=== PATIENT | female | born 2000 | race Caucasian/White ===

== ENCOUNTER 2018-11-12 23:41 | Emergency (ER) | payer BC, OTHER ==
[2018-11-12] MEDS ORDERED: SODIUM CHLORIDE 0.9% 1,000 ML IV STA (23:46)
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
[2018-11-13 00:09] VITALS: RESP 18
[2018-11-13 00:17] LABS: Basophils # (A) 0.1 k/uL (0-0.2); Basophils % (A) 1 %; Eosinophils # (A) 0.2 k/uL (0-0.7); Eosinophils % (A) 2 %; HCT 42.8 % (34.0-46.0); HGB 14.3 gm/dL (11.4-16.0); Lymphocytes # (A) 3.4 k/uL (1.0-4.8); Lymphocytes % (A) 32 %; MCH 30.6 pg (25.0-35.0); MCHC 33.4 g/dL (31.0-37.0); MCV 91.5 fL (80.0-100.0); Mean Platelet Volume 7.1; Monocytes # (A) 0.4 k/uL (0-1.0); Monocytes % (A) 4 %; Neutrophils # (A) 6.1 k/uL (1.3-7.7); Neutrophils % (A) 59 %; Platelet Count 262 k/uL (150-450); RBC 4.68 m/uL (3.80-5.40); RDW 12.8 % (11.5-15.5); WBC 10.4 k/uL (4.0-11.0)
--- NOTE | 2018-11-13 00:23 | XR ---
EXAM: XR Chest, 1 View CLINICAL HISTORY: ITS.REASON XR Reason: trauma TECHNIQUE: Frontal view of the chest. COMPARISON: None. FINDINGS: Lungs: Hypoinflated lungs. Pleural space: Unremarkable. No pneumothorax. Heart: Unremarkable. No cardiomegaly. Mediastinum: Unremarkable. Bones/joints: Unremarkable. IMPRESSION: Hypoinflated lungs. Otherwise, no acute abnormality.
--- NOTE | 2018-11-13 00:24 | XR ---
EXAM: XR Pelvis, 1 or 2 Views CLINICAL HISTORY: ITS.REASON XR Reason: Trauma TECHNIQUE: Frontal view of the pelvis. COMPARISON: None. FINDINGS: Bones/joints: Unremarkable. No acute fracture. No dislocation. Soft tissues: Unremarkable. IMPRESSION: No acute osseous abnormality.
[2018-11-13 00:28] LABS: ALT 31 U/L (9-52); AST 27 U/L (14-36); African American GFR (CKD) >90 (>60 ml/min/1.73 sqM); Albumin 4.8 g/dL (3.5-5.0); Alkaline Phosphatase 62 U/L (38-126); Anion Gap 15 mmol/L; Blood Urea Nitrogen 6 mg/dL (7-17); Calcium 9.5 mg/dL (8.4-10.2); Carbon Dioxide 16 mmol/L (22-30); Chloride 114 mmol/L (98-107); Glucose 99 mg/dL (74-99); Potassium 4.2 mmol/L (3.5-5.1); Sodium 145 mmol/L (137-145); Total Bilirubin 0.9 mg/dL (0.2-1.3); Total Protein 7.7 g/dL (6.3-8.2)
[2018-11-13 00:37] LABS: Appearance,Urine Clear (Clear); Bilirubin,Urine Negative (Negative); Blood,Urine Negative (Negative); Color,Urine Colorless; Glucose,Urine (UA) Negative (Negative); Ketones,Urine Negative (Negative); Leukocyte Esterase,Urine Negative (Negative); Nitrite,Urine Negative (Negative); PH, Urine 6.5 (5.0-8.0); Protein,Urine Negative (Negative); Specific Gravity,Urine 1.002 (1.001-1.035); Urobilinogen,Urine <2.0 mg/dL (<2.0)
[2018-11-13 00:48] LABS: INR 0.9 (<1.2); Partial Thromboplastin Time 27.8 sec (22.0-30.0); Prothrombin Time 10.1 sec (9.0-12.0)
[2018-11-13 00:50] LABS: Amphetamine Screen,Urine Not Detected (NotDetected); Benzodiazepines Screen,Urine Not Detected (NotDetected); Cocaine Screen,Urine Not Detected (NotDetected); Methadone Screen, Urine Not Detected (NotDetected); Opiate Screen,Urine Not Detected (NotDetected); Phencyclidine Screen,Urine Not Detected (NotDetected); Tricyclic Antidepressant,Urine Not Detected (NotDetected); Urn Cannabinoid Scrn Not Detected (NotDetected)
[2018-11-13 00:51] LABS: Barbiturate Screen,Urine Not Detected (NotDetected); Oxycodone Screen, Urine Not Detected (NotDetected)
[2018-11-13 00:52] LABS: Alcohol 173 mg/dL
--- NOTE | 2018-11-13 00:54 | CT ---
EXAM: CT Head Without Intravenous Contrast CLINICAL HISTORY: ITS.REASON CT Reason: trauma TECHNIQUE: Axial computed tomography images of the head/brain without intravenous contrast. CTDI is 45.2 mGy and DLP is 1037 mGy-cm. This CT exam was performed using one or more of the following dose reduction techniques: automated exposure control, adjustment of the mA and/or kV according to patient size, and/or use of iterative reconstruction technique. COMPARISON: None. FINDINGS: Brain: Unremarkable. No hemorrhage. No significant white matter disease. No edema. Ventricles: Unremarkable. No ventriculomegaly. 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 This results in narrowing of the left vidian canal. No acute fracture. Soft tissues: Unremarkable. Sinuses: Mild mucosal thickening is seen in the ethmoid sinuses. Mastoid air cells: Unremarkable as visualized. No mastoid effusion. IMPRESSION: No intracranial hemorrhage or other acute intracranial abnormality. EXAM: CT Cervical Spine Without Intravenous Contrast CLINICAL HISTORY: ITS.REASON CT Reason: trauma TECHNIQUE: Axial computed tomography images of the cervical spine without intravenous contrast. CTDI is 16.8 mGy and DLP is 475.7 mGy-cm. This CT exam was performed using one or more of the following dose reduction techniques: automated exposure control, adjustment of the mA and/or kV according to patient size, and/or use of iterative reconstruction technique. COMPARISON: None. FINDINGS: Vertebrae: Unremarkable. No acute fracture. Discs/spinal canal/neural foramina: No acute findings. No spinal canal stenosis. Soft tissues: Unremarkable. IMPRESSION: No fracture or traumatic malalignment of the cervical spine.
--- NOTE | 2018-11-13 01:00 | CT ---
EXAM: CT Chest With Intravenous Contrast CLINICAL HISTORY: ITS.REASON CT Reason: trauma TECHNIQUE: Axial computed tomography images of the chest with intravenous contrast. CTDI is 16.5 mGy and DLP is 1281 mGy-cm. This CT exam was performed using one or more of the following dose reduction techniques: automated exposure control, adjustment of the mA and/or kV according to patient size, and/or use of iterative reconstruction technique. COMPARISON: None. FINDINGS: Lungs: Unremarkable. No mass. No consolidation. Pleural space: Unremarkable. No pneumothorax. No significant effusion. Heart: Unremarkable. No cardiomegaly. No significant pericardial effusion. Bones/joints: Unremarkable. No acute fracture. No dislocation. Soft tissues: Unremarkable. Vasculature: Unremarkable. No thoracic aortic aneurysm. Lymph nodes: Unremarkable. No enlarged lymph nodes. IMPRESSION: No acute traumatic abnormality in the chest. EXAM: CT Abdomen and Pelvis With Intravenous Contrast CLINICAL HISTORY: ITS.REASON CT Reason: trauma TECHNIQUE: Axial computed tomography images of the abdomen and pelvis with intravenous contrast. CTDI is 16.5 mGy and DLP is 1281 mGy-cm. This CT exam was performed using one or more of the following dose reduction techniques: automated exposure control, adjustment of the mA and/or kV according to patient size, and/or use of iterative reconstruction technique. COMPARISON: None. FINDINGS: Lung bases: Unremarkable. No mass. No consolidation. ABDOMEN: Liver: Unremarkable. No mass. Gallbladder and bile ducts: Unremarkable. No calcified stones. No ductal dilation. Pancreas: Unremarkable. No mass. No ductal dilation. Spleen: Unremarkable. No splenomegaly. Adrenals: Unremarkable. No mass. Kidneys and ureters: Unremarkable. No solid mass. No hydronephrosis. Stomach and bowel: Unremarkable. No obstruction. No mucosal thickening. PELVIS: Appendix: No findings to suggest acute appendicitis. Bladder: Unremarkable. No mass. Reproductive: Unremarkable as visualized. ABDOMEN and PELVIS: Intraperitoneal space: Unremarkable. No free air. No significant fluid collection. Bones/joints: No acute fracture. No dislocation. Soft tissues: Unremarkable. Vasculature: Unremarkable. No abdominal aortic aneurysm. Lymph nodes: Unremarkable. No enlarged lymph nodes. IMPRESSION: No acute traumatic abnormality in the abdomen or pelvis.
[2018-11-13 01:57] VITALS: BP 96/58; PULSE 72; TEMP 97.9
== END 2018-11-13 01:57 | disposition home or self-care (01) ==
LOC: EC 23:41
DX: S00.81XA Abrasion of other part of head, initial encounter (principal); F10.129 Alcohol abuse with intoxication, unspecified; V57.5XXA Driver of pick-up truck or van injured in collision with fixed or stationary object in traffic accident, initial encounter; Y92.89 Other specified places as the place of occurrence of the external cause; Y90.6 Blood alcohol level of 120-199 mg/100 ml
CPT/HCPCS: 99285; 96360; 36415; 93005; 86900; 86901; 80053; 84484; 85025; 85610; 85730; 86850; 81003; 81025; 80306; 80320; 72170; 71045; 72125; 70450; 71260; 74177; Q9967

== ENCOUNTER 2019-12-19 11:17 | Emergency (ER) | payer OTHER ==
--- NOTE | 2019-12-19 11:41 | ED ---
Nausea/Vomiting/Diarrhea HPI - General Chief complaint: Nausea/Vomiting/Diarrhea Stated complaint: weak/feel like passing out/nausea/vomiting Source: patient Mode of arrival: wheelchair - History of Present Illness Initial comments: Patient is a 19-year-old female presenting to emergency Department with chief complaint nausea, vomiting, diarrhea and lightheadedness. Patient states the diarrhea started about 2 days ago. States one day ago she developed nausea and vomiting. Patient reports also some epigastric abdominal pain after vomiting episodes. She denies any hemoptysis or hematemesis. States she also has anxiety which is also causing her to be more nauseous. Patient states she also has some left flank pain. She does report feeling weak and lightheaded. She denies any headaches or visual changes.. Reports she is currently on her menstrual period. She denies any vaginal or urinary symptoms. Denies hematuria, hematochezia or melena. Denies any night sweats fevers or chills. - Related Data Allergies Allergy/AdvReac Type Severity Reaction Status Date / Time No Known Allergies Allergy Verified 12/19/19 11:21 Review of Systems ROS Statement: Those systems with pertinent positive or pertinent negative responses have been documented in the HPI. ROS Other: All systems not noted in ROS Statement are negative. Past Medical History Past Medical History: No Reported History History of Any Multi-Drug Resistant Organisms: None Reported Past Surgical History: No Surgical Hx Reported Past Psychological History: Anxiety Smoking Status: Never smoker Past Alcohol Use History: Occasional Past Drug Use History: None Reported General Exam Limitations: no limitations General appearance: alert, in no apparent distress, anxious Head exam: Present: atraumatic, normocephalic, normal inspection Eye exam: Present: normal appearance, PERRL, EOMI Pupils: Present: normal accommodation ENT exam: Present: normal exam, normal oropharynx, mucous membranes moist, TM's normal bilaterally, normal external ear exam Neck exam: Present: normal inspection, full ROM. Absent: tenderness Respiratory exam: Present: normal lung sounds bilaterally. Absent: respiratory distress, wheezes, rales Cardiovascular Exam: Present: regular rate, normal rhythm, normal heart sounds GI/Abdominal exam: Present: soft. Absent: distended, tenderness, guarding, rebound, rigid Extremities exam: Present: normal inspection, full ROM, normal capillary refill. Absent: tenderness, pedal edema, joint swelling, calf tenderness Back exam: Present: normal inspection, full ROM, CVA tenderness (L). Absent: tenderness, CVA tenderness (R) Neurological exam: Present: alert, oriented X3, normal gait Psychiatric exam: Present: normal affect, anxious Skin exam: Present: warm, dry, intact, normal color Course Vital Signs 12/19/19 11:18 Temperature 98.4 F Pulse Rate 76 Respiratory 18 Rate Blood Pressure 137/76 O2 Sat by Pulse 100 Oximetry Medical Decision Making - Medical Decision Making Patient is a 19-year-old female presenting to emergency Department with chief complaint nausea vomiting diarrhea and lightheadedness. On initial evaluation, patient has anxiety and is crying while looking through her phone. She has nausea vomiting diarrhea 1-2 days. I suspect the lightheadedness is secondary to fluid loss from the vomiting and diarrhea. She does have mild left CVA tenderness. UA is positive for blood although she is currently on her menstrual period. No signs of urinary tract infection at this time. CBC reveals leukocytosis which I suspect is secondary to the vomiting. Patient was given IV fluids, Protonix and antiemetics. She was also given 0.5 mg of Ativan to help with anxiety. A reevaluation patient reports improvement in symptoms. I suspect the patient has gastroenteritis. Her symptoms could also be related to her menstrual periods which are quite irregular. She was advised to follow with a primary care physician. Strict return parameters were thoroughly discussed the patient is a worsening agreeable. She will be discharged with Zofran. Case discussed with physician. - Lab Data Result diagrams: 12/19/19 12:12 12/19/19 12:12 Lab Results 12/19/19 12/19/19 12/19/19 Range/Units 12:12 12:12 12:12 WBC 11.0 H (3.8-10.6) k/uL RBC 4.83 (3.80-5.40) m/uL Hgb 14.5 (11.4-16.0) gm/dL Hct 44.2 (34.0-46.0) % MCV 91.4 (80.0-100.0) fL MCH 30.1 (25.0-35.0) pg MCHC 32.9 (31.0-37.0) g/dL RDW 13.5 (11.5-15.5) % Plt Count 285 (150-450) k/uL Neutrophils % 77 % Lymphocytes % 16 % Monocytes % 5 % Eosinophils % 2 % Basophils % 0 % Neutrophils # 8.4 H (1.3-7.7) k/uL Lymphocytes # 1.7 (1.0-4.8) k/uL Monocytes # 0.5 (0-1.0) k/uL Eosinophils # 0.2 (0-0.7) k/uL Basophils # 0.0 (0-0.2) k/uL Sodium (137-145) mmol/L Potassium (3.5-5.1) mmol/L Chloride (98-107) mmol/L Carbon Dioxide (22-30) mmol/L Anion Gap mmol/L BUN (7-17) mg/dL Creatinine (0.52-1.04) mg/dL Est GFR (CKD-EPI)AfAm (>60 ml/min/1.73 sqM) Est GFR (CKD-EPI)NonAf (>60 ml/min/1.73 sqM) Glucose (74-99) mg/dL Calcium (8.4-10.2) mg/dL Total Bilirubin (0.2-1.3) mg/dL AST (14-36) U/L ALT (4-34) U/L Alkaline Phosphatase (38-126) U/L Total Protein (6.3-8.2) g/dL Albumin (3.5-5.0) g/dL Lipase (23-300) U/L Urine Color Yellow Urine Appearance Cloudy H (Clear) Urine pH 6.0 (5.0-8.0) Ur Specific [place] 1.025 (1.001-1.035) Urine Protein 1+ H (Negative) Urine Glucose (UA) Negative (Negative) Urine Ketones 1+ H (Negative) Urine Blood Moderate H (Negative) Urine Nitrite Negative (Negative) Urine Bilirubin Negative (Negative) Urine Urobilinogen <2.0 (<2.0) mg/dL Ur Leukocyte Esterase Negative (Negative) Urine RBC 13 H (0-5) /hpf Urine WBC 16 H (0-5) /hpf Ur Squamous Epith Cells 5 H (0-4) /hpf Urine Mucus Many H (None) /hpf Urine HCG, Qual Not Detected (Not Detectd) 12/19/19 Range/Units 12:12 WBC (3.8-10.6) k/uL RBC (3.80-5.40) m/uL Hgb (11.4-16.0) gm/dL Hct (34.0-46.0) % MCV (80.0-100.0) fL MCH (25.0-35.0) pg MCHC (31.0-37.0) g/dL RDW (11.5-15.5) % Plt Count (150-450) k/uL Neutrophils % % Lymphocytes % % Monocytes % % Eosinophils % % Basophils % % Neutrophils # (1.3-7.7) k/uL Lymphocytes # (1.0-4.8) k/uL Monocytes # (0-1.0) k/uL Eosinophils # (0-0.7) k/uL Basophils # (0-0.2) k/uL Sodium 142 (137-145) mmol/L Potassium 4.1 (3.5-5.1) mmol/L Chloride 104 (98-107) mmol/L Carbon Dioxide 26 (22-30) mmol/L Anion Gap 12 mmol/L BUN 9 (7-17) mg/dL Creatinine 0.78 (0.52-1.04) mg/dL Est GFR (CKD-EPI)AfAm >90 (>60 ml/min/1.73 sqM) Est GFR (CKD-EPI)NonAf >90 (>60 ml/min/1.73 sqM) Glucose 97 (74-99) mg/dL Calcium 10.0 (8.4-10.2) mg/dL Total Bilirubin 1.2 (0.2-1.3) mg/dL AST 24 (14-36) U/L ALT 50 H (4-34) U/L Alkaline Phosphatase 87 (38-126) U/L Total Protein 8.7 H (6.3-8.2) g/dL Albumin 5.4 H (3.5-5.0) g/dL Lipase 17 L (23-300) U/L Urine Color Urine Appearance (Clear) Urine pH (5.0-8.0) Ur Specific [place] (1.001-1.035) Urine Protein (Negative) Urine Glucose (UA) (Negative) Urine Ketones (Negative) Urine Blood (Negative) Urine Nitrite (Negative) Urine Bilirubin (Negative) Urine Urobilinogen (<2.0) mg/dL Ur Leukocyte Esterase (Negative) Urine RBC (0-5) /hpf Urine WBC (0-5) /hpf Ur Squamous Epith Cells (0-4) /hpf Urine Mucus (None) /hpf Urine HCG, Qual (Not Detectd) Disposition Clinical Impression: Nausea vomiting and diarrhea, Gastroenteritis Disposition: HOME SELF-CARE Condition: Stable Instructions (If sedation given, give patient instructions): Gastroenteritis (DC) Additional Instructions: Drink plenty of fluids. Take prescribed medication as directed. Return to emergency department if symptoms worsen. Follow with her primary care physician. Is patient prescribed a controlled substance at d/c from ED?: No Referrals: None,Stated [Primary Care Provider] - 1-2 days Time of Disposition: 13:30
[2019-12-19] MEDS ORDERED: SODIUM CHLORIDE 0.9% 1,000 ML IV STA (11:47)
[2019-12-19] MEDS ORDERED: PANTOPRAZOLE 40 MG/10 ML VIAL IVP STA (11:47)
[2019-12-19] MEDS ORDERED: ONDANSETRON 4 MG/2 ML VIAL IVP STA (11:47)
[2019-12-19] MEDS ORDERED: LORazepam 2 MG/ML INJ IV STA (11:48)
[2019-12-19 12:37] LABS: Basophils % (A) 0 %; Eosinophils # (A) 0.2 k/uL (0-0.7); Eosinophils % (A) 2 %; HCT 44.2 % (34.0-46.0); HGB 14.5 gm/dL (11.4-16.0); Lymphocytes # (A) 1.7 k/uL (1.0-4.8); Lymphocytes % (A) 16 %; MCH 30.1 pg (25.0-35.0); MCHC 32.9 g/dL (31.0-37.0); MCV 91.4 fL (80.0-100.0); Mean Platelet Volume 7.5; Monocytes # (A) 0.5 k/uL (0-1.0); Monocytes % (A) 5 %; Neutrophils # (A) 8.4 k/uL (1.3-7.7); Neutrophils % (A) 77 %; Platelet Count 285 k/uL (150-450); RBC 4.83 m/uL (3.80-5.40); RDW 13.5 % (11.5-15.5)
[2019-12-19 12:46] LABS: Appearance,Urine Cloudy (Clear); Bilirubin,Urine Negative (Negative); Blood,Urine Moderate (Negative); Color,Urine Yellow; Glucose,Urine (UA) Negative (Negative); Ketones,Urine 1+ (Negative); Leukocyte Esterase,Urine Negative (Negative); Mucus,Urine Many /hpf; Nitrite,Urine Negative (Negative); Protein,Urine 1+ (Negative); RBC,Urine 13 /hpf (0-5); Specific Gravity,Urine 1.025 (1.001-1.035); Squamous Epithelial Cell,Urine 5 /hpf (0-4); Urobilinogen,Urine <2.0 mg/dL (<2.0); WBC,Urine 16 /hpf (0-5)
[2019-12-19 12:47] LABS: ALT 50 U/L (4-34); AST 24 U/L (14-36); African American GFR (CKD) >90 (>60 ml/min/1.73 sqM); Albumin 5.4 g/dL (3.5-5.0); Alkaline Phosphatase 87 U/L (38-126); Anion Gap 12 mmol/L; Blood Urea Nitrogen 9 mg/dL (7-17); Carbon Dioxide 26 mmol/L (22-30); Chloride 104 mmol/L (98-107); Glucose 97 mg/dL (74-99); Lipase 17 U/L (23-300); Non-African American GFR(CKD) >90 (>60 ml/min/1.73 sqM); Potassium 4.1 mmol/L (3.5-5.1); Sodium 142 mmol/L (137-145); Total Bilirubin 1.2 mg/dL (0.2-1.3); Total Protein 8.7 g/dL (6.3-8.2)
[2019-12-19] MEDS ORDERED: METOCLOPRAMIDE 5 MG/ML 2 ML VIAL IVP STA (12:47)
[2019-12-19] MEDS ORDERED: diphenhydrAMINE 50 MG/ML 1 ML VIAL IVP STA (12:47)
[2019-12-19 14:11] VITALS: RESP 20
[2019-12-19 14:12] VITALS: BP 99/63; PULSE 53; TEMP 98
== END 2019-12-19 14:12 | disposition home or self-care (01) ==
LOC: EC 11:17
DX: K52.9 Noninfective gastroenteritis and colitis, unspecified (principal); R42 Dizziness and giddiness; F41.9 Anxiety disorder, unspecified; D72.829 Elevated white blood cell count, unspecified
CPT/HCPCS: 36415; 80053; 83690; 85025; 81001; 81025; 87086; 99284; 96374; 96375 ×4; 96361; J2060; J1200; J2765; J2405; C9113

== ENCOUNTER 2020-05-12 11:37 | Inpatient (IN) | payer MEDICAID, OTHER ==
[2020-05-12] MEDS ORDERED: chlordiazePOXIDE 25 MG CAP PO STA (12:11)
--- NOTE | 2020-05-12 12:15 | ED ---
Psych HPI - General Chief Complaint: Psychiatric Symptoms Stated Complaint: detoxing Time Seen by Provider: 05/12/20 11:46 Source: patient, RN notes reviewed, old records reviewed Mode of arrival: ambulatory - History of Present Illness Initial Comments: Is a 19-year-old female with a history of benzodiazepine and opiate abuse who presents for concern for suicidal thoughts. Patient states that she has no specific plan. She reports that she is withdrawing at this time and her last dose of Xanax as night. She reports that she is "12 bars" of xanax daily. She reports her last opiate use was 2 weeks ago. Patient reports was the first time she's been evaluated for mental health issues. She fortunately she has a personality disorder. She has history of self-inflicted cutting, she cut her left wrist yesterday. - Related Data Previous Rx's Medication Instructions Recorded Ondansetron Odt [Zofran Odt] 4 mg PO Q8HR PRN #10 tab 12/19/19 Allergies Allergy/AdvReac Type Severity Reaction Status Date / Time No Known Allergies Allergy Verified 05/12/20 11:43 Review of Systems ROS Statement: Those systems with pertinent positive or pertinent negative responses have been documented in the HPI. ROS Other: All systems not noted in ROS Statement are negative. Past Medical History Past Medical History: No Reported History History of Any Multi-Drug Resistant Organisms: None Reported Past Surgical History: No Surgical Hx Reported Past Psychological History: Anxiety Smoking Status: Vaper Past Alcohol Use History: None Reported Past Drug Use History: Opiates General Exam - General Exam Comments Initial Comments: Patient is anxious to-year-old female. Alert and oriented 3. Limitations: no limitations General appearance: alert, in no apparent distress, anxious Head exam: Present: atraumatic, normocephalic, normal inspection Eye exam: Present: normal appearance, PERRL, EOMI. Absent: scleral icterus, conjunctival injection, periorbital swelling ENT exam: Present: normal exam, mucous membranes moist Neck exam: Present: normal inspection. Absent: tenderness, meningismus, lymphadenopathy Respiratory exam: Present: normal lung sounds bilaterally. Absent: respiratory distress, wheezes, rales, rhonchi, stridor Cardiovascular Exam: Present: regular rate, normal rhythm, normal heart sounds. Absent: systolic murmur, diastolic murmur, rubs, gallop, clicks GI/Abdominal exam: Present: soft, normal bowel sounds. Absent: distended, tenderness, guarding, rebound, rigid Extremities exam: Present: normal inspection, full ROM, normal capillary refill. Absent: tenderness, pedal edema, joint swelling, calf tenderness Back exam: Present: normal inspection Neurological exam: Present: alert, oriented X3, CN II-XII intact Psychiatric exam: Present: depressed, agitated. Absent: normal affect, normal mood Skin exam: Present: warm, dry, intact, normal color. Absent: rash Course Vital Signs 05/12/20 11:39 Temperature 98.4 F Pulse Rate 97 Respiratory 18 Rate Blood Pressure 108/69 O2 Sat by Pulse 98 Oximetry Medical Decision Making - Medical Decision Making Patient is a 19-year-old female presents with mental health concern, concern withdrawals from opiates and benzos. Patient was given Librium and emergency department. Should she's had suicidal thoughts but denies any specific plan to myself. Essentially medically clear for EPS evaluation. They determined Patient does criteria for admission. - Lab Data Lab Results 05/12/20 05/12/20 05/12/20 Range/Units 12:18 12:18 12:18 Urine HCG, Qual Not Detected (Not Detectd) Urine Opiates Screen Detected H (NotDetected) Ur Oxycodone Screen Not Detected (NotDetected) Urine Methadone Screen Not Detected (NotDetected) Ur Propoxyphene Screen Not Detected (NotDetected) Ur Barbiturates Screen Not Detected (NotDetected) U Tricyclic Antidepress Not Detected (NotDetected) Ur Phencyclidine Scrn Not Detected (NotDetected) Ur Amphetamines Screen Not Detected (NotDetected) U Methamphetamines Scrn Not Detected (NotDetected) U Benzodiazepines Scrn Detected H (NotDetected) Urine Cocaine Screen Not Detected (NotDetected) U Marijuana (THC) Screen Detected H (NotDetected) Coronavirus (PCR) Not Detected (Not Detectd) Disposition Clinical Impression: Suicidal ideation, Opiate abuse, episodic, Benzodiazepine abuse Disposition: [facility] Condition: Good Is patient prescribed a controlled substance at d/c from ED?: No Referrals: None,Stated [Primary Care Provider] - 1-2 days Time of Disposition: 13:32
[2020-05-12 12:36] LABS: Cocaine Screen,Urine Not Detected (NotDetected); Opiate Screen,Urine Detected (NotDetected); Phencyclidine Screen,Urine Not Detected (NotDetected); Urn Cannabinoid Scrn Detected (NotDetected)
[2020-05-12 12:37] LABS: Amphetamine Screen,Urine Not Detected (NotDetected); Barbiturate Screen,Urine Not Detected (NotDetected); Benzodiazepines Screen,Urine Detected (NotDetected); Methadone Screen, Urine Not Detected (NotDetected); Oxycodone Screen, Urine Not Detected (NotDetected); Tricyclic Antidepressant,Urine Not Detected (NotDetected)
[2020-05-12] MEDS ORDERED: MAG HYDROX/AL HYDROX/SIMETH 30 ML CUP PO PRN (14:23)
[2020-05-12] MEDS ORDERED: hydrOXYzine HCL 50 MG/ML 1 ML VIAL IM PRN (14:30)
[2020-05-12] MEDS: chlordiazePOXIDE 25 MG CAP PO SCH ×2 (17:13→21:33)
--- NOTE | 2020-05-12 21:42 | P.MDCNMH ---
History of Present Illness H&P Date: 05/12/20 Chief Complaint: medical eval 19 year old female with no significant past medical history patient comes in due to anxiety, suicidal ideation , she claims that she has been struggling with depressed mood and anxiety for a while now. she has been using her mothers medications, however over past couple weeks she has been consumed with suicidal thoughts, she has never had psych evaluation in the past, she otherwise denies any medical concerns except for easy bruisability over her extremities, no french bleeding , no excessive bleeding , she has irregular menstrual periods, she also reports family history of having "thin blood". she denies trouble breathing , chest pain , fever, chills, cough, nausea , vomiting, abd pain , changes in urinary or bowel habits admits to smoking, and using prescription pills, denies alcohol on regular basis Review of Systems Pertinent positives as noted in HPI. All other systems were reviewed and are negative Past Medical History Past Medical History: No Reported History History of Any Multi-Drug Resistant Organisms: None Reported Past Surgical History: No Surgical Hx Reported Past Anesthesia/Blood Transfusion Reactions: No Reported Reaction Past Psychological History: Anxiety, Depression Smoking Status: Vaper Past Alcohol Use History: None Reported Past Drug Use History: Opiates Additional Drug Use History / Comment(s): abusing benzo's. - Past Family History Mother Family Medical History: Thyroid Disorder Additional Family Medical History / Comment(s): Depression, Bipolar, "thin blood" Medications and Allergies Home Medications Medication Instructions Recorded Confirmed Type No Known Home Medications 05/12/20 05/12/20 History Allergies Allergy/AdvReac Type Severity Reaction Status Date / Time No Known Allergies Allergy Verified 05/12/20 16:06 Physical Exam Vitals: Vital Signs Temp Pulse Pulse Resp BP BP BP 05/12/20 21:34 84 111/67 05/12/20 18:06 98.5 F 05/12/20 15:08 98.1 F 69 20 116/63 05/12/20 11:39 98.4 F 97 18 108/69 Pulse Ox 05/12/20 21:34 05/12/20 18:06 05/12/20 15:08 05/12/20 11:39 98 Intake and Output 05/12/20 05/12/20 05/12/20 06:59 14:59 22:59 Other: Weight 83.915 kg 83.915 kg Constitutional: No acute distress, conversant, pleasant Eyes: Anicteric sclerae, moist conjunctiva, Pupils equal round reactive to light ENMT: NC/AT Oropharynx clear, no erythema, or exudates Neck: Supple, FROM, no masses, or JVD No carotid bruits No thyromegaly Lungs: Clear to auscultation Clear to percussion Normal respiratory effort, no accessory muscle use Cardiovascular: Heart regular in rate and rhythm, No murmurs, gallops, or rubs No peripheral edema Abdominal: Soft Nontender, no guarding, rebound or rigidity Abdomen moving with respiration Normoactive bowel sounds No hepatomegaly, No splenomegaly No palpable mass No abdominal wall hernia noted Skin: Normal temperature, tone, texture, turgor No induration No subcutaneous nodules No rash, lesions few bruising spots quarter size each, over bilateral lower extremities Extremities: No digital cyanosis No clubbing Pedal pulses intact and symmetrical Radial pulses intact and symmetrical No calf tenderness Psychiatric: Alert and oriented to person, place and time depressed affect fair judgement Neuro Muscles Strength 5/5 in all 4 extremities Sensation to light touch grossly present throughout Cranial nerves II-XII grossly intact No focal sensory deficits Lymphatics: no palpable cervical or supraclavicular , or inguinal lymph nodes Cranial Nerve Examination - Cranial Nerves Cranial Nerve II- Optic: Intact Cranial Nerve III- Oculomotor: Intact Cranial Nerve IV- Trochlear: Intact Cranial Nerve V- Trigeminal: Intact Cranial Nerve - Abducens: Intact Cranial Nerve VII- Facial: Intact Cranial Nerve VIII- Auditory: Intact Cranial Nerve IX- Glossopharyngeal: Intact Cranial Nerve X- Vagus: Intact Cranial Nerve XI- Accessory: Intact Cranial Nerve XII- Hypoglossal: Intact Results Labs: Abnormal Lab Results - Last 24 Hours (Table) 05/12/20 Range/Units 12:18 Urine Opiates Screen Detected H (NotDetected) U Benzodiazepines Scrn Detected H (NotDetected) U Marijuana (THC) Screen Detected H (NotDetected) Assessment and Plan Assessment: depressed mood, suicidal ideation management per psych suicide precautions polysubstance abuse counseled to not used other people prescription medications without seeing her doctor NRT offered follow up CBC , BMP, TSH Thank you for allowing us to participate in the care of this patient. We will follow peripherally. Do not hesitate to contact us with questions. Someone can be reached from the [facility] hospitalist group at all hours of the day at [phone].
[2020-05-12] MEDS: ACETAMINOPHEN TAB 325 MG TAB PO PRN (23:29)
[2020-05-13 07:27] LABS: Basophils # (A) 0.1 k/uL (0-0.2); Basophils % (A) 1 %; Eosinophils # (A) 0.2 k/uL (0-0.7); Eosinophils % (A) 3 %; HGB 13.2 gm/dL (11.4-16.0); Lymphocytes # (A) 3.3 k/uL (1.0-4.8); Lymphocytes % (A) 44 %; MCH 30.4 pg (25.0-35.0); MCV 92.2 fL (80.0-100.0); Mean Platelet Volume 7.5; Monocytes # (A) 0.3 k/uL (0-1.0); Monocytes % (A) 4 %; Neutrophils # (A) 3.5 k/uL (1.3-7.7); Neutrophils % (A) 46 %; Platelet Count 210 k/uL (150-450); RBC 4.33 m/uL (3.80-5.40); RDW 13.4 % (11.5-15.5); WBC 7.5 k/uL (3.8-10.6)
[2020-05-13 07:37] LABS: Partial Thromboplastin Time 26.5 sec (22.0-30.0)
[2020-05-13 07:43] LABS: ALT 14 U/L (4-34); AST 15 U/L (14-36); African American GFR (CKD) >90 (>60 ml/min/1.73 sqM); Albumin 4.2 g/dL (3.5-5.0); Alkaline Phosphatase 51 U/L (38-126); Anion Gap 10 mmol/L; Blood Urea Nitrogen 12 mg/dL (7-17); Calcium 9.3 mg/dL (8.4-10.2); Carbon Dioxide 21 mmol/L (22-30); Chloride 108 mmol/L (98-107); Cholesterol 131 mg/dL (<200); Glucose 73 mg/dL (74-99); HDL Cholesterol 44 mg/dL (40-60); LDL Cholesterol,Calculated 76 mg/dL (0-99); Non-African American GFR(CKD) >90 (>60 ml/min/1.73 sqM); Potassium 4.6 mmol/L (3.5-5.1); Sodium 139 mmol/L (137-145); Total Bilirubin 2.4 mg/dL (0.2-1.3); Triglycerides 54 mg/dL (<150)
[2020-05-13] MEDS: NICOTINE 14MG/24HR PATCH TRANSDERM SCH ×2 (09:13)
[2020-05-13] MEDS: chlordiazePOXIDE 25 MG CAP PO SCH ×3 (09:15→20:50)
--- NOTE | 2020-05-13 11:59 | P.HP ---
Psychiatric H&P - . H&P Date: 05/13/20 History & Physical: Allergies Allergy/AdvReac Type Severity Reaction Status Date / Time No Known Allergies Allergy Verified 05/12/20 16:06 Vital Signs Temp 98.4 F 05/13/20 06:40 Pulse 78 05/13/20 06:40 Resp 16 05/13/20 06:40 BP 122/63 05/13/20 06:40 Pulse Ox 98 05/12/20 11:39 Intake & Output 05/12/20 05/13/20 05/13/20 18:59 06:59 18:59 Weight 83.915 kg Laboratory Last Values WBC 7.5 k/uL (3.8-10.6) 05/13/20 06:24 RBC 4.33 m/uL (3.80-5.40) 05/13/20 06:24 Hgb 13.2 gm/dL (11.4-16.0) 05/13/20 06:24 Hct 40.0 % (34.0-46.0) 05/13/20 06:24 MCV 92.2 fL (80.0-100.0) 05/13/20 06:24 MCH 30.4 pg (25.0-35.0) 05/13/20 06:24 MCHC 33.0 g/dL (31.0-37.0) 05/13/20 06:24 RDW 13.4 % (11.5-15.5) 05/13/20 06:24 Plt Count 210 k/uL (150-450) 05/13/20 06:24 MPV 7.5 05/13/20 06:24 Neutrophils % 46 % 05/13/20 06:24 Lymphocytes % 44 % 05/13/20 06:24 Monocytes % 4 % 05/13/20 06:24 Eosinophils % 3 % 05/13/20 06:24 Basophils % 1 % 05/13/20 06:24 Neutrophils # 3.5 k/uL (1.3-7.7) 05/13/20 06:24 Lymphocytes # 3.3 k/uL (1.0-4.8) 05/13/20 06:24 Monocytes # 0.3 k/uL (0-1.0) 05/13/20 06:24 Eosinophils # 0.2 k/uL (0-0.7) 05/13/20 06:24 Basophils # 0.1 k/uL (0-0.2) 05/13/20 06:24 PT 11.0 sec (9.0-12.0) 05/13/20 06:24 INR 1.0 (<1.2) 05/13/20 06:24 APTT 26.5 sec (22.0-30.0) 05/13/20 06:24 Sodium 139 mmol/L (137-145) 05/13/20 06:24 Potassium 4.6 mmol/L (3.5-5.1) 05/13/20 06:24 Chloride 108 mmol/L (98-107) H 05/13/20 06:24 Carbon Dioxide 21 mmol/L (22-30) L 05/13/20 06:24 Anion Gap 10 mmol/L 05/13/20 06:24 BUN 12 mg/dL (7-17) 05/13/20 06:24 Creatinine 0.66 mg/dL (0.52-1.04) 05/13/20 06:24 Est GFR (CKD-EPI)AfAm >90 (>60 ml/min/1.73 sqM) 05/13/20 06:24 Est GFR (CKD-EPI)NonAf >90 (>60 ml/min/1.73 sqM) 05/13/20 06:24 Glucose 73 mg/dL (74-99) L 05/13/20 06:24 Calcium 9.3 mg/dL (8.4-10.2) 05/13/20 06:24 Total Bilirubin 2.4 mg/dL (0.2-1.3) H 05/13/20 06:24 AST 15 U/L (14-36) 05/13/20 06:24 ALT 14 U/L (4-34) 05/13/20 06:24 Alkaline Phosphatase 51 U/L (38-126) 05/13/20 06:24 Total Protein 7.0 g/dL (6.3-8.2) 05/13/20 06:24 Albumin 4.2 g/dL (3.5-5.0) 05/13/20 06:24 Triglycerides 54 mg/dL (<150) 05/13/20 06:24 Cholesterol 131 mg/dL (<200) 05/13/20 06:24 LDL Cholesterol, Calc 76 mg/dL (0-99) 05/13/20 06:24 HDL Cholesterol 44 mg/dL (40-60) 05/13/20 06:24 TSH 0.391 mIU/L (0.465-4.680) L 05/13/20 06:24 Urine HCG, Qual Not Detected (Not Detectd) 05/12/20 12:18 Urine Opiates Screen Detected (NotDetected) H 05/12/20 12:18 Ur Oxycodone Screen Not Detected (NotDetected) 05/12/20 12:18 Urine Methadone Screen Not Detected (NotDetected) 05/12/20 12:18 Ur Propoxyphene Screen Not Detected (NotDetected) 05/12/20 12:18 Ur Barbiturates Screen Not Detected (NotDetected) 05/12/20 12:18 U Tricyclic Antidepress Not Detected (NotDetected) 05/12/20 12:18 Ur Phencyclidine Scrn Not Detected (NotDetected) 05/12/20 12:18 Ur Amphetamines Screen Not Detected (NotDetected) 05/12/20 12:18 U Methamphetamines Scrn Not Detected (NotDetected) 05/12/20 12:18 U Benzodiazepines Scrn Detected (NotDetected) H 05/12/20 12:18 Urine Cocaine Screen Not Detected (NotDetected) 05/12/20 12:18 U Marijuana (THC) Screen Detected (NotDetected) H 05/12/20 12:18 Coronavirus (PCR) Not Detected (Not Detectd) 05/12/20 12:18 05/13/20 11:48 IDENTIFYING DATA: Patient is a 19-year-old female who currently lives with a friend in a house is unemployed has no kids and is single. HPI: Patient presented to the hospital yesterday claiming that she has a history of benzodiazepine and opiate abuse and was feeling suicidal with no plan. Vision claimed in the ER that she was withdrawing from her last dose of Xanax which was used the night before. She had stated that she was using approximately 12 bars a day of Xanax. She also claims that her last opiate use was several weeks ago according to your report. She also stated that she had cut her wrist recently. Patient's UDS was positive for opiates benzodiazepines and marijuana. Airport Ramp Attendant saw patient today in her room and was agreeable to speak in the office. Patient appeared to have a disheveled appearance and appeared to be lethargic. She states that she was "hanging around the wrong people" and states that "they're all drug addicts". She states that she has been wit hdrawing from Xanax and field felt that she needed a detox. She states that she has been using several different drugs throughout the past several months experimenting. She states that the opiates and Xanax were the ones that she has been using heavily recently. She states that she has been using Xanax for approximately a year now. She claims that she has been buying off the street. She states that her withdrawal symptoms include tremors restless leg symptoms and an increase in her anxiety. She states that she still feeling depressed and has been battling with depression "my whole life". She states that it has gotten worse lately. She states that she has poor sleep and poor appetite. She claims that she most likely had a "manic episode" in the past and states that she crashes into depression several days afterwards. Patient denies any suicidal or homicidal ideations intent or plan. At this time patient denies any auditory or visual hallucinations. Patient denies any flight of ideas racing thoughts and increased in goal directed behavior. Patient admits to using recreational drugs as noted above. She states that she occasionally uses cannabis. She states that she also uses cigarettes and vapes. PAST PSYCHIATRIC HISTORY: Patient states that she has an unknown psychiatric history however claims that she has been dealing with anxiety depression and possible manic episodes in the past. Patient denies being on any psychiatric medications. Patient denies any previous psychiatric hospitalizations. Patient denies any psychiatric outpatient follow-up. Patient denies any history of suicide attempts in the past although she did admit to a history of cutting. PMH:denies ALLERGIES: as per EMR CHEMICAL DEPENDENCY HISTORY: as per HPI FAMILY PSYCHIATRIC/SUBSTANCE USE HISTORY: She states that her mother has bipolar disorder, her cousin has schizophrenia. She states that on her father's side there are several family members that abuse recreational drugs. SOCIAL HISTORY: Patient was born and raised in [place] and moved to [place] at the age of 15. 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 She states that she is currently unemployed has no kids and is single. She states that she is living with her friend in a house. She states that she has never been to detention or penitentiary in the past. MENTAL STATUS EXAM: General Appearance: Patient appears to be tall, stated age is alert, directable, and attempts to cooperate. Appears to be lethargic at times. Patient appears to have poor/disheveled hygiene and grooming. Behavior: Patient is seated without any agitated behavior. Attempts to be cooperative. Appears to be lethargic. Speech: Patient's speech is fluent and nonpressured. [place] Mood/Affect: Patient reports their mood is depressed and anxious, affect is congruent and constricted. Suicidality/Homicidality: Patient denies having any homicidal ideation intent or plan. Denies any suicidal ideations intent or plan Perceptions: Patient denies any visual hallucinations and denies any auditory hallucinations Though content/process: There is no evidence of any delusional thought content and thought process is linear and goal-directed. Focused on her symptoms and discharge. Memory and concentration: AOX3, grossly intact for the purposes of this session. Can spell "WORLD" backwards Judgment and insight: poor STRENGTHS/WEAKNESSES: strength is that patient is resilient. Weakness is that patient has poor judgment and history of recreational drug use INTELLECT: average IMPRESSIONS: Depressive disorder unspecified, rule out bipolar depression versus substance- induced mood disorder Opiate abuse Benzodiazepine abuse Cannabis use disorder Nicotine dependence PLAN: -Patient is admitted under voluntary status to [facility] for stabilization of psychiatric symptoms and safety. Patient has signed adult voluntary form and medication consent and is placed in patient's chart. Patient ended up signing AMA shortly after signing voluntary however today patient rescinded her AMA and is agreeable to continue with treatment voluntarily. -Medications : Will start patient on Lamictal 25 mg twice a day for mood stabilization/depression, trazodone 50 mg daily at bedtime for insomnia. Vistaril when necessary for anxiety. Scheduled Librium 25 mg 3 times a day Taper for benzodiazepine withdrawal symptoms. -Spoken with patient about the medication side effects from Lamictal including a rash, patient verbally understood and agreed to check her skin daily and report any suspicion of a rash. -Haldol PRN for agitation/aggression -Patient was counselled on substance abuse and desired to cut back on use -Patient was informed of the risks, benefits and side effects of the medication and patient verbally consented to taking the medications. Patient signed med consent form and was placed in chart. -Internal Medicine consult to perform medical evaluation and physical. -NRT - nicotine patch -SW on board for discharge planning. Encourage patient to participate in groups to work on coping skills. roller shop utility worker to speak with patient's mom as she is apparently driving up from [place] to see patient and apparently patient will living with mother in [place] after discharge. will speak with patient about [facility] treatment in the community vs. rehab.
[2020-05-13] MEDS: hydrOXYzine pamoate 25 MG CAP PO PRN (13:16)
[2020-05-13 16:22] VITALS: BMI 27.3
[2020-05-13] MEDS: lamoTRIgine 25 MG TAB PO SCH (20:50)
[2020-05-13] MEDS: traZODone HCL 50 MG TAB PO SCH (20:50)
[2020-05-14] MEDS: chlordiazePOXIDE 25 MG CAP PO SCH ×2 (09:09→20:33)
[2020-05-14] MEDS: NICOTINE 14MG/24HR PATCH TRANSDERM SCH (09:09)
[2020-05-14] MEDS: lamoTRIgine 25 MG TAB PO SCH ×2 (09:09→20:33)
--- NOTE | 2020-05-14 09:15 | P.PN ---
Progress Note - Text Progress Note Date: 05/14/20 Interval History: Patient was seen wandering the hallways and was directable and agreeable to darnell mackenzie with proposal writer in the office. Patient appeared to have mild improvement in hygiene and grooming today. She states that her mood has been gradually improving and claims that her anxiety has been more under control with the Librium and her medications. She states that she did have restless leg symptoms last night mildly before going to bed however she states that she was able to sleep throughout the night. She claims that she has mainly been isolating on the unit and did not go to groups. She claims that she spoke with her mother several times over the phone yesterday and claims that she will be likely moving to [place] with her. She states that "I need to get away from all the drugs otherwise all relapse again". She is demonstrating mild improvement in her judgment and insight. She states that she has mildly improved appetite. At this time patient denies any suicidal or homical ideations, intent or plan. Patient denies any auditory, visual hallucinations and denies any paranoia or delusions. Patient denies any side effects from the medications and has been compliant with meds. Mental Status Exam: General Appearance: Patient appears to be tall, stated age is alert, directable, and attempts to cooperate. More awake today. Patient appears to have mildly improving hygiene and grooming. Behavior: Patient is seated without any agitated behavior. Attempts to be cooperative. Speech: Patient's speech is fluent and nonpressured. [place] Mood/Affect: Patient reports their mood is mildly improving, affect is congruent and constricted. Suicidality/Homicidality: Patient denies having any homicidal ideation intent or plan. Denies any suicidal ideations intent or plan Perceptions: Patient denies any visual hallucinations and denies any auditory hallucinations Though content/process: There is no evidence of any delusional thought content and thought process is linear and goal-directed. Focused on her symptoms and discharge. Memory and concentration: AOX3, grossly intact for the purposes of this session Judgment and insight: improving mildly Assessment Depressive disorder unspecified, rule out bipolar depression versus substance- induced mood disorder Opiate abuse Benzodiazepine abuse Cannabis use disorder Nicotine dependence Plan: -Patient continues to meet criteria for inpatient psychiatric admission for symptom stabilization and safety. Patient has signed adult voluntary form and medication consent and was placed in patient's chart. Patient has also signed an AMA form however rescinded her AMA on 05/13/20 -Medications: Continue Lamictal 25 mg twice a day for mood stabilization/depression. Patient wants to continue on trazodone 50 mg daily at bedtime for insomnia. Vistaril when necessary for anxiety. Decrease Librium to 25 mg twice a day for benzodiazepine withdrawal symptoms. -At this time patient claims that she is checking her skin and denies any rash. patient verbally understood and agreed to check her skin daily and report any suspicion of a rash. -When necessary Haldol for agitation/aggression. -NRT - nicotine patch -SW on board for discharge planning. Encouraged the patient to participate in milieu. transmission worker to speak with patient's mom today to arrange for potential d/c tomorrow as patient is apparently going to live with mother in [place] after discharge. will speak with patient and mother about [facility] treatment in the [facility] vs. rehab.
[2020-05-14] MEDS: hydrOXYzine pamoate 25 MG CAP PO PRN (12:58)
[2020-05-14] MEDS: traZODone HCL 50 MG TAB PO SCH (20:33)
[2020-05-14] MEDS: ACETAMINOPHEN TAB 325 MG TAB PO PRN (20:34)
[2020-05-15 06:38] VITALS: BP 114/58; PULSE 64; RESP 12; TEMP 97.6
[2020-05-15] MEDS: lamoTRIgine 25 MG TAB PO SCH (08:02)
[2020-05-15] MEDS: chlordiazePOXIDE 25 MG CAP PO SCH (08:03)
[2020-05-15] MEDS: NICOTINE 14MG/24HR PATCH TRANSDERM SCH (08:04)
--- NOTE | 2020-05-15 09:16 | P.DS ---
Providers Date of admission: 05/12/20 14:21 Expected date of discharge: 05/15/20 Attending physician: Rod Francisco MD Consults: 05/12/20 14:23 Consult Physician Routine Consulting Provider: Josh Hassan Consult Reason/Comments: medical management Do you want consulting provider notified?: Yes Primary care physician: Stated None - Discharge Diagnosis(es) (1) Bipolar depression Current Visit: Yes Status: Acute Priority: High (2) Opioid abuse Current Visit: Yes Status: Acute Priority: Medium (3) Benzodiazepine abuse Current Visit: Yes Status: Acute Priority: Medium (4) Cannabis use disorder, mild, abuse Current Visit: Yes Status: Acute Priority: Low (5) Nicotine dependence Current Visit: Yes Status: Acute Priority: Low Hospital Course: Admission HPI: Admission note was completed by tech writer "Patient is a 19-year-old female who currently lives with a friend in a house is unemployed has no kids and is single. Patient presented to the hospital yesterday claiming that she has a history of benzodiazepine and opiate abuse and was feeling suicidal with no plan. Vision claimed in the ER that she was withdrawing from her last dose of Xanax which was used the night before. She had stated that she was using approximately 12 bars a day of Xanax. She also claims that her last opiate use was several weeks ago according to your report. She also stated that she had cut her wrist recently. Patient's UDS was positive for opiates benzodiazepines and marijuana. Field Marketer saw patient today in her room and was agreeable to speak in the office. Patient appeared to have a disheveled appearance and appeared to be lethargic. She states that she was "hanging around the wrong people" and states that "they're all drug addicts". She states that she has been withdrawing from Xanax and field felt that she needed a detox. She states that she has been using several different drugs throughout the past several months experimenting. She states that the opiates and Xanax were the ones that she has been using heavily recently. She states that she has been using Xanax for a pproximately a year now. She claims that she has been buying off the street. She states that her withdrawal symptoms include tremors restless leg symptoms and an increase in her anxiety. She states that she still feeling depressed and has been battling with depression "my whole life". She states that it has gotten worse lately. She states that she has poor sleep and poor appetite. She claims that she most likely had a "manic episode" in the past and states that she crashes into depression several days afterwards. Patient denies any suicidal or homicidal ideations intent or plan. At this time patient denies any auditory or visual hallucinations. Patient denies any flight of ideas racing thoughts and increased in goal directed behavior. Patient admits to using recreational drugs as noted above. She states that she occasionally uses cannabis. She states that she also uses cigarettes and vapes." Hospital course: Upon admission to the unit patient was initially depressed anxious and going through withdrawals from substances. Patient was however directable and agreeable to commence treatment and signed adult voluntary form. Patient soon after signed AMA however rescinded the AMA form shortly after that and was agreeable to continue on with voluntary treatment and take medications on the unit. Patient got along well with other patients on the unit and followed unit protocol. Patient was compliant with the medications and denied any side effects throughout hospital course. Patient was started on Lamictal and increased to a dose of 25 mg twice a day for mood stabilization/depression. Patient was also started on trazodone 50 mg daily at bedtime for insomnia and Vistaril when necessary for anxiety. Patient was also placed on a Librium taper for benzodiazepine withdrawal symptoms and also on CIWA. Patient spoke of her stressors and engaged in therapy both group and individual. Patient was also seen by medical team for history and physical exam. Throughout the course of the hospitalization patient gradually improved with regards to mood, anxiety, sleep and became more future oriented with improved insight and judgment. On the day of discharge patient denied any suicidal or homicidal ideations intent or plan denied any auditory or visual hallucinations. Patient endorsed wanting to live for her health and future. The patient denied any access to guns or weapons. Patient denied any paranoia and did not endorse any delusions. Patient does have a significant history of substance abuse and was counseled on abstaining from all substances including alcohol and marijuana. Patient was offered however declined local inpatient substance-abuse rehab in treatment as patient claims that she her and her mother will be looking at substance abuse treatment programs in [place] as she will be moving with her mother there after discharge. Patient was also counseled on the medications and need for regular compliance and was encouraged to follow-up with their outpatient appointment for mental health and also for primary care. Prior to discharge a family meeting will be arranged by social services coordinator to answer any questions and ensure safety upon discharge. Mental status exam: General Appearance: Patient appears to be tall, stated age is alert, pleasant, and cooperative. Patient is in no acute distress and has improved hygiene and grooming Behavior: Patient is calmly seated without any agitated behavior. Speech: Patient's speech is fluent and nonpressured. Mood/Affect: Patient reports their mood is "better", affect is congruent and euthymic. Suicidality/Homicidality: Patient denies having any suicidal or homicidal ideation intent or plan. Perceptions: Patient denies any auditory or visual hallucinations. Though content/process: There is no evidence of any delusional thought content and thought process is linear and goal-directed. more future oriented Memory and concentration: AOX3, grossly intact for the purposes of this session. Can spell "WORLD" backwards correctly. Judgment and insight: improved with guarded prognosis Impression: Bipolar disorder, currently depressed Opioid abuse Benzodiazepine abuse Cannabis use disorder Nicotine dependence Plan: -Continue with discharge today as patient has improved and stabilized psychiatrically and is not currently an imminent threat to herself and/or others. Patient will remain at chronically elevated risk for harm to self and/or others due to her polysubstance abuse. -Continue medications: Continue Lamictal 25 mg twice a day for mood stabilization/depression, trazodone 50 mg daily at bedtime when necessary for insomnia, Vistaril 25 mg twice a day when necessary for anxiety, and recommended that patient use melatonin 2-3 mg nightly for insomnia. -Patient was counseled on the need for medication compliance and appropriate follow-up at mental health and also primary care for medical issues. Patient verbalized understanding and agreed. -Social work to arrange for and conduct family meeting to ensure safety upon discharge and answer any questions/concerns. Social work also to arrange for patients follow up appointments for psychiatric care along with follow up with primary care provider. -Patient counseled on abstaining from recreational drugs and marijuana and alcohol. Was informed/educated on the adverse effects on their physical and mental health. Patient verbally agreed and understood. Patient was offered substance abuse treatment locally however due to patient moving with her mother to [place], patient and her mother wanted for her to follow up and seek further [facility] treatment in [place] where she will be living. -Patient was instructed to return to the hospital or seek immediate medical care if their psychiatric or medical symptoms do worsen or reoccur. Vital Signs Temp 97.6 F 05/15/20 06:37 Pulse 64 05/15/20 06:37 Resp 12 05/15/20 06:37 BP 114/58 05/15/20 06:37 Pulse Ox 98 05/12/20 11:39 Allergies Allergy/AdvReac Type Severity Reaction Status Date / Time No Known Allergies Allergy Verified 05/12/20 16:06 Laboratory Results WBC 7.5 k/uL (3.8-10.6) 05/13/20 06:24 RBC 4.33 m/uL (3.80-5.40) 05/13/20 06:24 Hgb 13.2 gm/dL (11.4-16.0) 05/13/20 06:24 Hct 40.0 % (34.0-46.0) 05/13/20 06:24 MCV 92.2 fL (80.0-100.0) 05/13/20 06:24 MCH 30.4 pg (25.0-35.0) 05/13/20 06:24 MCHC 33.0 g/dL (31.0-37.0) 05/13/20 06:24 RDW 13.4 % (11.5-15.5) 05/13/20 06:24 Plt Count 210 k/uL (150-450) 05/13/20 06:24 MPV 7.5 05/13/20 06:24 Neutrophils % 46 % 05/13/20 06:24 Lymphocytes % 44 % 05/13/20 06:24 Monocytes % 4 % 05/13/20 06:24 Eosinophils % 3 % 05/13/20 06:24 Basophils % 1 % 05/13/20 06:24 Neutrophils # 3.5 k/uL (1.3-7.7) 05/13/20 06:24 Lymphocytes # 3.3 k/uL (1.0-4.8) 05/13/20 06:24 Monocytes # 0.3 k/uL (0-1.0) 05/13/20 06:24 Eosinophils # 0.2 k/uL (0-0.7) 05/13/20 06:24 Basophils # 0.1 k/uL (0-0.2) 05/13/20 06:24 PT 11.0 sec (9.0-12.0) 05/13/20 06:24 INR 1.0 (<1.2) 05/13/20 06:24 APTT 26.5 sec (22.0-30.0) 05/13/20 06:24 Sodium 139 mmol/L (137-145) 05/13/20 06:24 Potassium 4.6 mmol/L (3.5-5.1) 05/13/20 06:24 Chloride 108 mmol/L (98-107) H 05/13/20 06:24 Carbon Dioxide 21 mmol/L (22-30) L 05/13/20 06:24 Anion Gap 10 mmol/L 05/13/20 06:24 BUN 12 mg/dL (7-17) 05/13/20 06:24 Creatinine 0.66 mg/dL (0.52-1.04) 05/13/20 06:24 Est GFR (CKD-EPI)AfAm >90 (>60 ml/min/1.73 sqM) 05/13/20 06:24 Est GFR (CKD-EPI)NonAf >90 (>60 ml/min/1.73 sqM) 05/13/20 06:24 Glucose 73 mg/dL (74-99) L 05/13/20 06:[address] Glu mg/dL 97 05/13/20 06:24 Hemoglobin A1c 5.0 % (4.0-6.0) 05/13/20 06:24 Calcium 9.3 mg/dL (8.4-10.2) 05/13/20 06:24 Total Bilirubin 2.4 mg/dL (0.2-1.3) H 05/13/20 06:24 AST 15 U/L (14-36) 05/13/20 06:24 ALT 14 U/L (4-34) 05/13/20 06:24 Alkaline Phosphatase 51 U/L (38-126) 05/13/20 06:24 Total Protein 7.0 g/dL (6.3-8.2) 05/13/20 06:24 Albumin 4.2 g/dL (3.5-5.0) 05/13/20 06:24 Triglycerides 54 mg/dL (<150) 05/13/20 06:24 Cholesterol 131 mg/dL (<200) 05/13/20 06:24 LDL Cholesterol, Calc 76 mg/dL (0-99) 05/13/20 06:24 HDL Cholesterol 44 mg/dL (40-60) 05/13/20 06:24 TSH 0.391 mIU/L (0.465-4.680) L 05/13/20 06:24 Urine HCG, Qual Not Detected (Not Detectd) 05/12/20 12:18 Urine Opiates Screen Detected (NotDetected) H 05/12/20 12:18 Ur Oxycodone Screen Not Detected (NotDetected) 05/12/20 12:18 Urine Methadone Screen Not Detected (NotDetected) 05/12/20 12:18 Ur Propoxyphene Screen Not Detected (NotDetected) 05/12/20 12:18 Ur Barbiturates Screen Not Detected (NotDetected) 05/12/20 12:18 U Tricyclic Antidepress Not Detected (NotDetected) 05/12/20 12:18 Ur Phencyclidine Scrn Not Detected (NotDetected) 05/12/20 12:18 Ur Amphetamines Screen Not Detected (NotDetected) 05/12/20 12:18 U Methamphetamines Scrn Not Detected (NotDetected) 05/12/20 12:18 U Benzodiazepines Scrn Detected (NotDetected) H 05/12/20 12:18 Urine Cocaine Screen Not Detected (NotDetected) 05/12/20 12:18 U Marijuana (THC) Screen Detected (NotDetected) H 05/12/20 12:18 Coronavirus (PCR) Not Detected (Not Detectd) 05/12/20 12:18 Laboratory Results WBC 7.5 k/uL (3.8-10.6) 05/13/20 06:24 RBC 4.33 m/uL (3.80-5.40) 05/13/20 06:24 Hgb 13.2 gm/dL (11.4-16.0) 05/13/20 06:24 Hct 40.0 % (34.0-46.0) 05/13/20 06:24 MCV 92.2 fL (80.0-100.0) 05/13/20 06:24 MCH 30.4 pg (25.0-35.0) 05/13/20 06:24 MCHC 33.0 g/dL (31.0-37.0) 05/13/20 06:24 RDW 13.4 % (11.5-15.5) 05/13/20 06:24 Plt Count 210 k/uL (150-450) 05/13/20 06:24 MPV 7.5 05/13/20 06:24 Neutrophils % 46 % 05/13/20 06:24 Lymphocytes % 44 % 05/13/20 06:24 Monocytes % 4 % 05/13/20 06:24 Eosinophils % 3 % 05/13/20 06:24 Basophils % 1 % 05/13/20 06:24 Neutrophils # 3.5 k/uL (1.3-7.7) 05/13/20 06:24 Lymphocytes # 3.3 k/uL (1.0-4.8) 05/13/20 06:24 Monocytes # 0.3 k/uL (0-1.0) 05/13/20 06:24 Eosinophils # 0.2 k/uL (0-0.7) 05/13/20 06:24 Basophils # 0.1 k/uL (0-0.2) 05/13/20 06:24 PT 11.0 sec (9.0-12.0) 05/13/20 06:24 INR 1.0 (<1.2) 05/13/20 06:24 APTT 26.5 sec (22.0-30.0) 05/13/20 06:24 Sodium 139 mmol/L (137-145) 05/13/20 06:24 Potassium 4.6 mmol/L (3.5-5.1) 05/13/20 06:24 Chloride 108 mmol/L (98-107) H 05/13/20 06:24 Carbon Dioxide 21 mmol/L (22-30) L 05/13/20 06:24 Anion Gap 10 mmol/L 05/13/20 06:24 BUN 12 mg/dL (7-17) 05/13/20 06:24 Creatinine 0.66 mg/dL (0.52-1.04) 05/13/20 06:24 Est GFR (CKD-EPI)AfAm >90 (>60 ml/min/1.73 sqM) 05/13/20 06:24 Est GFR (CKD-EPI)NonAf >90 (>60 ml/min/1.73 sqM) 05/13/20 06:24 Glucose 73 mg/dL (74-99) L 05/13/20 06:[address] Glu mg/dL 97 05/13/20 06:24 Hemoglobin A1c 5.0 % (4.0-6.0) 05/13/20 06:24 Calcium 9.3 mg/dL (8.4-10.2) 05/13/20 06:24 Total Bilirubin 2.4 mg/dL (0.2-1.3) H 05/13/20 06:24 AST 15 U/L (14-36) 05/13/20 06:24 ALT 14 U/L (4-34) 05/13/20 06:24 Alkaline Phosphatase 51 U/L (38-126) 05/13/20 06:24 Total Protein 7.0 g/dL (6.3-8.2) 05/13/20 06:24 Albumin 4.2 g/dL (3.5-5.0) 05/13/20 06:24 Triglycerides 54 mg/dL (<150) 05/13/20 06:24 Cholesterol 131 mg/dL (<200) 05/13/20 06:24 LDL Cholesterol, Calc 76 mg/dL (0-99) 05/13/20 06:24 HDL Cholesterol 44 mg/dL (40-60) 05/13/20 06:24 TSH 0.391 mIU/L (0.465-4.680) L 05/13/20 06:24 Urine HCG, Qual Not Detected (Not Detectd) 05/12/20 12:18 Urine Opiates Screen Detected (NotDetected) H 05/12/20 12:18 Ur Oxycodone Screen Not Detected (NotDetected) 05/12/20 12:18 Urine Methadone Screen Not Detected (NotDetected) 05/12/20 12:18 Ur Propoxyphene Screen Not Detected (NotDetected) 05/12/20 12:18 Ur Barbiturates Screen Not Detected (NotDetected) 05/12/20 12:18 U Tricyclic Antidepress Not Detected (NotDetected) 05/12/20 12:18 Ur Phencyclidine Scrn Not Detected (NotDetected) 05/12/20 12:18 Ur Amphetamines Screen Not Detected (NotDetected) 05/12/20 12:18 U Methamphetamines Scrn Not Detected (NotDetected) 05/12/20 12:18 U Benzodiazepines Scrn Detected (NotDetected) H 05/12/20 12:18 Urine Cocaine Screen Not Detected (NotDetected) 05/12/20 12:18 U Marijuana (THC) Screen Detected (NotDetected) H 05/12/20 12:18 Coronavirus (PCR) Not Detected (Not Detectd) 05/12/20 12:18 Patient Condition at Discharge: Stable Plan - Discharge Summary Discharge Rx Participant: No New Discharge Prescriptions: New traZODone HCL [Desyrel] 50 mg PO HS PRN 30 Days tab PRN Reason: Insomnia Nicotine 14Mg/24Hr Patch [Habitrol] 1 patch TRANSDERM DAILY 14 Days patch lamoTRIgine [LaMICtal] 25 mg PO BID 30 Days tab Acetaminophen Tab [Tylenol] 650 mg PO Q4HR PRN tab PRN Reason: Mild Pain/Discomfort hydrOXYzine pamoate [Vistaril] 25 mg PO BID PRN 30 Days cap PRN Reason: anxiety Discharge Medication List Acetaminophen Tab [Tylenol] 650 mg PO Q4HR PRN tab 05/15/20 [Rx] Nicotine 14Mg/24Hr Patch [Habitrol] 1 patch TRANSDERM DAILY 14 Days patch 05/15/20 [Rx] hydrOXYzine pamoate [Vistaril] 25 mg PO BID PRN 30 Days cap 05/15/20 [Rx] lamoTRIgine [LaMICtal] 25 mg PO BID 30 Days tab 05/15/20 [Rx] traZODone HCL [Desyrel] 50 mg PO HS PRN 30 Days tab 05/15/20 [Rx] Follow up Appointment(s)/Referral(s): Néstor Julio [Other] - 05/16/20 1:00 pm (intake Patient will be changing to [place] medicaid for payment) None,Stated [Primary Care Provider] - 1-2 days Activity/Diet/Wound Care/Special Instructions: Activity and diet as tolerated. Avoid the use of street drugs and alcohol. Take all medications as prescribed. When you are in need of refills on your medications please contact your medical provider and/or outpatient psychiatrist to have this done. Please go to scheduled outpatient appointment for aftercare t reatment. If symptoms return or become worse, call the crisis line at and/or go to the nearest emergency room for evaluation. Discharge Disposition: HOME SELF-CARE
[2020-05-15] MEDS: hydrOXYzine pamoate 25 MG CAP PO PRN (10:52)
== END 2020-05-15 11:30 | disposition home or self-care (01) | DRG 885 ==
LOC: EC 11:37 → 3MHU 14:21
PROVIDERS: ADMIT Psychiatry & Neurology Psychiatry; ATTEND Psychiatry & Neurology Psychiatry
DX: F31.30 Bipolar disorder, current episode depressed, mild or moderate severity, unspecified (principal); F13.239 Sedative, hypnotic or anxiolytic dependence with withdrawal, unspecified; R45.851 Suicidal ideations; F11.10 Opioid abuse, uncomplicated; F12.10 Cannabis abuse, uncomplicated; Z20.822 Contact with and (suspected) exposure to COVID-19; F60.9 Personality disorder, unspecified; S61.512A Laceration without foreign body of left wrist, initial encounter; G25.81 Restless legs syndrome; G47.00 Insomnia, unspecified; F17.290 Nicotine dependence, other tobacco product, uncomplicated; Z71.6 Tobacco abuse counseling; Z91.5 Personal history of self-harm; Z56.0 Unemployment, unspecified; F41.9 Anxiety disorder, unspecified; Z81.8 Family history of other mental and behavioral disorders; Z83.49 Family history of other endocrine, nutritional and metabolic diseases
CPT/HCPCS: 80053; 80061; 80306; 81025; 82075; 83036; 84443; 85025; 85610; 85730; 87635; 99285